=== PATIENT | male | born 1950 | race Two or more races ===

== ENCOUNTER 2017-03-30 14:52 | Observation (INO) | payer MEDICARE, OTHER ==
--- NOTE | 2017-03-30 15:45 | ER Document Report ---
ED Medical Screen (RME) - General Chief Complaint: Chest Pain Stated Complaint: CHEST PAIN Time Seen by Provider: 03/30/17 15:43 Notes: Patient has had chest pain for approximate 1 week. He states is been intermittent. He says he has had a heart attack before with blockage but they are unable to stent the blockage. He states this was done in [place]. TRAVEL OUTSIDE OF THE [place] IN LAST 30 DAYS: No - Related Data Allergies/Adverse Reactions: codeine Allergy (Verified 03/30/17 14:53) Past Medical History - Social History Frequency of alcohol use: None Drug Abuse: None Renal/ Medical History: Denies: Hx Peritoneal Dialysis Physical Exam - Vital signs Vitals: Temp Pulse Resp BP Pulse Ox 98.2 F 63 20 150/68 H 97 03/30/17 15:01 03/30/17 15:01 03/30/17 15:01 03/30/17 15:01 03/30/17 15:01 Course - Vital Signs Vital signs: Temp Pulse Resp BP Pulse Ox 98.2 F 63 20 150/68 H 97 03/30/17 15:01 03/30/17 15:01 03/30/17 15:01 03/30/17 15:01 03/30/17 15:01
[2017-03-30 16:15] LABS: ABSOLUTE BASOPHILS # (AUTO) 0.1 10^3/uL (0.0-0.2); ABSOLUTE EOSINOPHILS # (AUTO) 0.3 10^3/uL (0.0-0.6); ABSOLUTE LYMPHOCYTES (AUTO) 2.3 10^3/uL (0.5-4.7); ABSOLUTE MONOCYTES (AUTO) 0.5 10^3/uL (0.1-1.4); ABSOLUTE NEUT (AUTO) 4.8 10^3/uL (1.7-8.2); BASOPHILS % (AUTO) 1.3 % (0-2); EOSINOPHILS % (AUTO) 3.2 % (0-6); HEMOGLOBIN 13.1 g/dL (13.5-17.0); HGB HCT DIFFERENCE 1.3; LYMPHOCYTES % (AUTO) 29.4 % (13-45); MEAN CORPUSCULAR HEMOGLOBIN 30.7 pg (27.0-33.4); MEAN CORPUSCULAR HGB CONC 34.5 g/dL (32.0-36.0); MEAN CORPUSCULAR VOLUME 89 fl (80-97); MONOCYTES % (AUTO) 6.2 % (3-13); RED BLOOD COUNT 4.28 10^6/uL (4.35-5.55); RED CELL DISTRIBUTION WIDTH 13.7 % (11.5-14.0); SEGMENTED NEUTROPHILS % (AUTO) 59.9 % (42-78); WHITE BLOOD COUNT 7.9 10^3/uL (4.0-10.5)
--- NOTE | 2017-03-30 16:31 | RADIOLOGY REPORT (SQ) ---
EXAM DESCRIPTION: CHEST PA/LAT COMPLETED DATE/TIME: 03/30/2017 4:20 pm REASON FOR STUDY: cp COMPARISON: None. EXAM PARAMETERS: NUMBER OF VIEWS: two views TECHNIQUE: Digital Frontal and Lateral radiographic views of the chest acquired. RADIATION DOSE: NA LIMITATIONS: none FINDINGS: LUNGS AND PLEURA: No opacities, masses or pneumothorax. No pleural effusion. I cannot exc lude a component of obstructive lung disease. MEDIASTINUM AND HILAR STRUCTURES: No masses or contour abnormalities. HEART AND VASCULAR STRUCTURES: Heart normal size. No evidence for failure. BONES: No acute findings. There is some bony deformity of the distal right clavicle with some elevat ion of the distal right clavicle presumably related to previous trauma. HARDWARE: None in the chest. OTHER: No other significant finding. IMPRESSION: NO SIGNIFICANT RADIOGRAPHIC FINDING IN THE CHEST. TECHNICAL DOCUMENTATION: JOB ID: [id number] [employer]- All Rights Reserved
[2017-03-30 16:34] LABS: ALANINE AMINOTRANSFERASE 35 U/L (21-72); ALBUMIN 4.1 g/dL (3.5-5.0); ALKALINE PHOSPHATASE 93 U/L (38-126); ANION GAP 12 (5-19); ASPARTATE AMINO TRANSFERASE 19 U/L (17-59); BILIRUBIN,DIRECT 0.3 mg/dL (0.0-0.4); BILIRUBIN,TOTAL 0.5 mg/dL (0.2-1.3); BLOOD UREA NITROGEN 13 mg/dL (7-20); CALCIUM 9.2 mg/dL (8.4-10.2); CARBON DIOXIDE 27 mmol/L (22-30); CHLORIDE 108 mmol/L (98-107); CREATININE RESULT 0.67 mg/dL (0.52-1.25); GLUCOSE 107 mg/dL (75-110); POTASSIUM 3.8 mmol/L (3.6-5.0); SODIUM 146.8 mmol/L (137-145); TOTAL PROTEIN 6.9 g/dL (6.3-8.2)
[2017-03-30] MEDS ORDERED: ACETAMINOPHEN 325 MG TABLET PO PRN (17:24)
[2017-03-30] MEDS ORDERED: ZOLPIDEM TARTRATE 5 MG TABLET PO PRN (17:24)
[2017-03-30] MEDS ORDERED: ONDANSETRON HCL INJ/PF 4 MG/2 ML SDV IV PRN (17:24)
--- NOTE | 2017-03-30 17:24 | ER Document Report ---
ED Cardiac - General Chief Complaint: Chest Pain Stated Complaint: CHEST PAIN Time Seen by Provider: 03/30/17 15:43 Mode of Arrival: Ambulatory Information source: Patient Notes: Patient is a 66-year-old male with past medical history including high blood pressure, high cholesterol, diabetes, "heart attack" in the past without stents , as well as a abdominal surgery and a previous AAA 3 cm in diameter on last evaluation who presents today stating a week of some progressive substernal nonradiating chest "discomfort". He denies any and all abdominal pain or tenderness. He denies any aggravating or relieving factors. He denies it being exertional pain. Patient has a left BKA. He denies any right calf pain or swelling. Patient moved to 1 month ago from [place]. He denies any runny nose, congestion, or coughing. Patient does smoke. On review of systems the patient is also complaining of a developing ulcer over the last year to his left AKA distal attachment site TRAVEL OUTSIDE OF THE [place] IN LAST 30 DAYS: No - HPI Patient complains to provider of: Chest pain Was the onset of pain: Gradual Is the pain a: New problem Chest pain location: Substernal Quality of pain: Other - See above Chest pain radiation location: None Severity now: None Severity at worst: Mild Pain level currently: Denies Chest pain precipitating factors: See above Cardiac risk factors: Diabetes, Hypertension, Smoker, Dyslipidemia, Hx [place]. denies: + Family history, Hx CHF Positive cardiac history: Yes Associated symptoms: Other Exacerbated by: Denies Relieved by: Nothing Similar symptoms previously: Yes Recently seen / treated by doctor: No - Related Data Allergies/Adverse Reactions: codeine Allergy (Verified 03/30/17 14:53) Home Medications: Current Home Medications Alprostadil [[place]] 500 mcg UR ASDIR PRN 03/30/17 [History] Aspirin [Aspirin EC] 81 mg PO DAILY 03/30/17 [History] Atorvastatin Calcium [Lipitor] 0.5 mg PO DAILY 03/30/17 [History] Baclofen [Baclofen 20 mg Tablet] 0.5 tab PO TID 03/30/17 [History] Cholecalciferol (Vitamin D3) [Vitamin D3 2000 unit Tablet] 2,000 unit PO DAILY 03/30/17 [History] Hydrocodone/Acetaminophen [Hydrocodon-Acetaminoph 7.5-325] 1 each PO Q6H PRN 08/11 [History] Insulin Glargine,Hum.rec.anlog [Lantus] 30 units SQ DAILY 03/30/17 [History] Metformin HCl 1,000 mg PO BID 03/30/17 [History] Mupirocin [Bactroban 2% Ointment 22 gm] 1 applic TP DAILY 03/30/17 [History] Naproxen 500 mg PO BID 03/30/17 [History] Omeprazole 20 mg PO DAILY 03/30/17 [History] Pregabalin [Lyrica] 200 mg PO TID 03/30/17 [History] Sertraline HCl [Zoloft] 100 mg PO DAILY 03/30/17 [History] Sildenafil Citrate [Viagra] 100 mg PO ASDIR PRN 03/30/17 [History] Trazodone HCl [Desyrel] 100 mg PO DAILY 03/30/17 [History] Past Medical History - General Information source: Patient - Social History Smoking Status: Current Every Day Smoker Cigarette use (# per day): No Chew tobacco use (# tins/day): No Smoking Education Provided: No Frequency of alcohol use: None Drug Abuse: None Family History: Reviewed & Not Pertinent Patient has suicidal ideation: No Patient has homicidal ideation: No Renal/ Medical History: Denies: Hx Peritoneal Dialysis Review of Systems - Review of Systems Constitutional: denies: Fever EENT: denies: Eye discharge, Nose discharge Cardiovascular: denies: Palpitations, Syncope, Dizziness Respiratory: denies: Short of breath Gastrointestinal: denies: Abdomen distended, Abdominal pain, Vomiting Genitourinary: denies: Dysuria Musculoskeletal: denies: Leg swelling Skin: Other - no hives. denies: Rash Neurological/Psychological: Other - no slurred speech -: Yes All other systems reviewed and negative Physical Exam - Vital signs Vitals: Temp Pulse Resp BP Pulse Ox 98.2 F 63 20 150/68 H 97 03/30/17 15:01 03/30/17 15:01 03/30/17 15:01 03/30/17 15:01 03/30/17 15:01 Notes: Reviewed vital signs and nursing note as charted by RN. CONSTITUTIONAL: Alert and oriented and responds appropriately to questions. Well -appearing; well-nourished HEAD: Normocephalic; atraumatic EYES: PERRL CARD: Regular rate and rhythm; no murmurs RESP: Normal chest excursion without splinting or tachypnea; breath sounds clear and equal bilaterally ABD/GI: Normal bowel sounds; old abdominal midline scars consistent with history ; non-distended; soft, non-tender, no rebound, no guarding; abdominal bruit heard left of the umbilicus midline consistent with history; no palpable organomegaly or masses present BACK: The back appears normal and is non-tender to palpation, there is no CVA tenderness EXT: Normal ROM in all joints; non-tender to palpation; no cyanosis, no effusions, no edema SKIN: Patient has a nonfluctuant non-purulent lesion 3cm by 1 cm to the distal left AKA site NEURO: Moves all extremities equally; Motor and sensory function intact PSYCH: The patient's mood and manner are appropriate. Grooming and personal hygiene are appropriate. Course - Re-evaluation Re-evalutation: Given the history and physical examination we will order basic labs, cardiac labs, EKG, and x-ray of the chest. Patient currently denies any pain to his chest. I have ordered nitro paste. Given the lack of any shortness of breath, vital signs as recorded, no radiation to his back, I do believe aortic dissection and pulmonary embolism to be unlikely. Patient denies absolutely any abdominal pain. Patient has no abdominal tenderness. I do not believe AAA rupture was likely. EKG shows a heart rate of 58, normal sinus rhythm, normal axis, no obvious ST elevation or depression. Flattening T waves in lead aVL and V6 03/30/17 17:27 Given the above history and physical, negative troponin 1, x-ray of the chest showing no acute abnormalities, elevated heart score, patient will be admitted for further evaluation and management - Vital Signs Vital signs: Temp Pulse Resp BP Pulse Ox 98.2 F 63 20 150/68 H 97 03/30/17 15:01 03/30/17 15:01 03/30/17 15:01 03/30/17 15:01 03/30/17 15:01 - Laboratory Result Diagrams: 03/30/17 15:50 03/30/17 15:50 Laboratory results interpreted by me: 03/30/17 03/30/17 15:50 15:50 RBC 4.28 L Hgb 13.1 L Sodium 146.8 H Chloride 108 H Discharge - Discharge Clinical Impression: Chest pain Qualifiers: Chest pain type: unspecified Qualified Code(s): R07.9 - Chest pain, unspecified Leg ulcer, left Qualifiers: Non-pressure ulcer stage: unspecified non-pressure ulcer stage Qualified Code(s ): L97.929 - Non-pressure chronic ulcer of unspecified part of left lower leg with unspecified severity Disposition: ADMITTED OBSERVATION Admitting Provider: Hospitalist Unit Admitted: Telemetry
[2017-03-30] MEDS ORDERED: NITROGLYCERIN 2% OINTMENT 1 GM PACKET TP ONE (17:28)
[2017-03-30] MEDS ORDERED: ASPIRIN 325 MG TABLET PO ONE (17:28)
[2017-03-30] MEDS ORDERED: DEXTROSE 40% GEL 15 GM TUBE PO PRN ×2 (17:31)
[2017-03-30] MEDS ORDERED: INSULIN LISPRO 100 UNIT/ML 3 ML VIAL SUBCUT PRN (17:31)
[2017-03-30] MEDS ORDERED: GLUCAGON,HUMAN RECOMB 1 MG INJ IM PRN (17:31)
[2017-03-30] MEDS ORDERED: DEXTROSE 50%-WATER 25 GM/50 ML DISP.SYRIN IV PRN ×2 (17:31)
[2017-03-30] MEDS ORDERED: NITROGLYCERIN 0.4 MG/TAB 25 TAB/BOTTLE SL PRN (17:32)
--- NOTE | 2017-03-30 18:28 | PDOC H&P ---
History of Present Illness Admission Date/PCP: 03/30/2017 Patient complains of: Chest pains for a week History of Present Illness: JONATHAN SHAW is a 66 year old male who presented to emergency room accompanied by his via private vehicle and complains of midsternal chest pain for a whole week. Patient states that the chest pain is 24/7. He denies nausea, shortness of breath, radiation of pain or weakness. He suffers from chronic pain and had not been able to get the usual dose of hydrocodone for a week and a half. He recently moved from [place] to this area and his primary care provider had been refilling the medication. A week ago he was told that there were not going to be any more refills. Patient admits history of smoking half a pack daily for the past 55 years. He also has a history of abdominal aneurysm, diabetes, high blood pressure and heart attack. Our service was contacted and will admit for further evaluation. Past Medical History Cardiac Medical History: Reports: Coronary Artery Disease, Myocardial Infarction , Hyperlipidema, Hypertension, Peripheral Vascular Disease Pulmonary Medical History: Denies: Chronic Obstructive Pulmonary Disease (COPD) EENT Medical History: Reports: None Neurological Medical History: Reports: None Endocrine Medical History: Reports: Diabetes Mellitus Type 2 GI Medical History: Reports: Gastroesophageal Reflux Disease Musculoskeltal Medical History: Reports: Arthritis, Other - Diabetic neuropathy Psychiatric Medical History: Reports: Tobacco Dependency Traumatic Medical History: Reports: None Hematology: Reports: None Infectious Medical History: Reports: Hepatitis C Past Surgical History Past Surgical History: Reports: Other - Left BKA, Abdominal surgery for abdominal aneurysm Social History Information Source: Patient Smoking Status: Current Every Day Smoker Cigars Per Day: 50 Number of Years Smokin Frequency of Alcohol Use: None Hx Recreational Drug Use: No Hx Prescription Drug Abuse: Yes - Advance Directive Resuscitation Status: Full Code Family History Family History: DM, Hypertension Parental Family History Reviewed: Yes Children Family History Reviewed: Yes Sibling(s) Family History Reviewed.: Yes Medication/Allergy Home Medications: Alprostadil [[place]] 500 mcg UR ASDIR PRN 03/30/17 Aspirin [Aspirin EC] 81 mg PO DAILY 03/30/17 Atorvastatin Calcium [Lipitor] 0.5 mg PO DAILY 03/30/17 Baclofen [Baclofen 20 mg Tablet] 0.5 tab PO TID 03/30/17 Cholecalciferol (Vitamin D3) [Vitamin D3 2000 unit Tablet] 2,000 unit PO DAILY 03/30/17 Hydrocodone/Acetaminophen [Hydrocodon-Acetaminoph 7.5-325] 1 each PO Q6H PRN 08/11 Insulin Glargine,Hum.rec.anlog [Lantus] 30 units SQ DAILY 03/30/17 Metformin HCl 1,000 mg PO BID 03/30/17 Mupirocin [Bactroban 2% Ointment 22 gm] 1 applic TP DAILY 03/30/17 Naproxen 500 mg PO BID 03/30/17 Omeprazole 20 mg PO DAILY 03/30/17 Pregabalin [Lyrica] 200 mg PO TID 03/30/17 Sertraline HCl [Zoloft] 100 mg PO DAILY 03/30/17 Sildenafil Citrate [Viagra] 100 mg PO ASDIR PRN 03/30/17 Trazodone HCl [Desyrel] 100 mg PO DAILY 03/30/17 Allergies/Adverse Reactions: codeine Allergy (Verified 03/30/17 14:53) Review of Systems Constitutional: ABSENT: chills, fever(s), headache(s) Eyes: PRESENT: as per HPI Ears: PRESENT: as per HPI Nose, Mouth, and Throat: ABSENT: sore throat Cardiovascular: PRESENT: chest pain, dyspnea on exertion. ABSENT: edema Respiratory: PRESENT: dyspnea Gastrointestinal: ABSENT: abdominal pain, dysphagia, heartburn Neurological: PRESENT: focal weakness Physical Exam Vital Signs: Temp Pulse Resp BP Pulse Ox 98.2 F 63 20 150/68 H 97 03/30/17 15:01 03/30/17 15:01 03/30/17 15:01 03/30/17 15:01 03/30/17 15:01 Intake & Output 03/29/17 03/30/17 03/31/17 06:59 06:59 06:59 Weight 94 kg General appearance: PRESENT: no acute distress, cooperative, obese Head exam: PRESENT: atraumatic, normocephalic Eye exam: PRESENT: conjunctiva pink, EOMI, PERRLA Ear exam: PRESENT: normal external ear exam, TM's normal bilaterally Mouth exam: PRESENT: moist, neck supple Neck exam: PRESENT: full ROM. ABSENT: JVD, tenderness Respiratory exam: PRESENT: clear to auscultation maria elena Cardiovascular exam: PRESENT: RRR. ABSENT: diastolic murmur, systolic murmur Vascular exam: PRESENT: normal capillary refill GI/Abdominal exam: PRESENT: normal bowel sounds, soft, other - midline depressible incisional hernia. ABSENT: tenderness Extremities exam: ABSENT: joint swelling, pedal edema Neurological exam: PRESENT: alert, oriented to person, oriented to place, oriented to time Skin exam: PRESENT: normal color - ulcer to lateral aspect of left BKA, other Results Laboratory Results: 03/30/17 15:50 03/30/17 15:50 03/30/17 03/30/17 15:50 15:50 WBC 7.9 RBC 4.28 L Hgb 13.1 L Hct 38.0 MCV 89 MCH 30.7 MCHC 34.5 RDW 13.7 Plt Count 208 Seg Neutrophils % 59.9 Lymphocytes % 29.4 Monocytes % 6.2 Eosinophils % 3.2 Basophils % 1.3 Absolute Neutrophils 4.8 Absolute Lymphocytes 2.3 Absolute Monocytes 0.5 Absolute Eosinophils 0.3 Absolute Basophils 0.1 Sodium 146.8 H Potassium 3.8 Chloride 108 H Carbon Dioxide 27 Anion Gap 12 BUN 13 Creatinine 0.67 Est GFR ( Amer) > 60 Est GFR (Non-Af Amer) > 60 Glucose 107 Calcium 9.2 Total Bilirubin 0.5 AST 19 ALT 35 Alkaline Phosphatase 93 Total Protein 6.9 Albumin 4.1 03/30/17 15:50 Troponin I < 0.012 Impressions: Chest X-Ray 03/30/17 15:44 IMPRESSION: NO SIGNIFICANT RADIOGRAPHIC FINDING IN THE CHEST. Assessment & Plan - Diagnosis (1) Abdominal aneurysm Is this a current diagnosis for this admission?: Yes Plan: Order abdominal sonogram (2) Chest pain Qualifiers: Chest pain type: unspecified Qualified Code(s): R07.9 - Chest pain, unspecified Is this a current diagnosis for this admission?: Yes Plan: According to the story appears be non cardiac but lack of hydrocodone. However, will trend troponin due to risk factors. 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 Order bedside glucose Ac and HS. (5) Tobacco abuse Is this a current diagnosis for this admission?: Yes Plan: Encouraged to quit smoking and states had been trying to cut down - Time Time Spent: 30 to 50 Minutes Smoking Cessation Education: 3 to 10 minutes Medications reviewed and adjusted accordingly: Yes Anticipated discharge: Home - Inpatient Certification Based on my medical assessment, after consideration of the patient's comorbidities, presenting symptoms, or acuity I expect that the services needed warrant INPATIENT care.: No I certify that my determination is in accordance with my understanding of Medicare's requirements for reasonable and necessary INPATIENT services [42 CFR 412.3e].: Yes Medical Necessity: Significant Comorbidiites Make Outpatient Treatment Too Risky
[2017-03-30] MEDS ORDERED: ENOXAPARIN SODIUM INJ 40 MG/0.4 ML DISP.SYRIN SUBCUT ONE (18:30)
[2017-03-30] MEDS: OXYCODONE-ACETAMINOPHEN 5-325 MG TABLET PO PRN (18:35)
--- NOTE | 2017-03-30 20:38 | EKG REPORT ---
SEVERITY:- NORMAL ECG - SINUS RHYTHM : Confirmed by: Lizandro Hoffman 30-Mar-2017 20:37:36
[2017-03-30] MEDS: PREGABALIN 100 MG CAPSULE PO SCH (21:58)
[2017-03-30] MEDS: BACLOFEN 20 MG TABLET PO SCH (21:59)
[2017-03-30] MEDS: TRAZODONE HCL 50 MG TABLET PO SCH (22:00)
[2017-03-30] MEDS ORDERED: INSULIN GLARGINE,HUM.REC.ANLOG 1,000 UNIT/10 ML UNIT SUBCUT SCH (22:00)
[2017-03-30] MEDS ORDERED: (PENDING PHARMACY ID) (Trazodone Hcl [Desyrel] 100 MG) PO SCH (22:00)
[2017-03-30] MEDS: INSULIN GLARGINE,HUM.REC.ANLOG 300 UNIT/3 ML INSULN.PEN SUBCUT SCH (22:00)
--- NOTE | 2017-03-31 03:08 | RADIOLOGY REPORT (SQ) ---
EXAM DESCRIPTION: U/S ABDOMEN COMPLETE W/O DOP CLINICAL HISTORY: 66 years, Male, eval for abdominal aneurysm COMPARISON: None. NUMBER OF VIEWS: Not applicable. TECHNIQUE: Transabdominal. LIMITATIONS: As below. FINDINGS: Mid and distal abdominal aorta are obscured. Proximal abdominal aorta diameter measures 2.9 cm. Moderate hepatic steatosis. 0.4 cm diameter common duct. Cholelithiasis. Negative sonographic Nix's test. Indeterminate 2.6 cm hypoechoic area of the left mid kidney. Right kidney and spleen appear unremarkable. Hepatopedal portal venous flow. Partially obscured aorta and liver. IMPRESSION: 1. Aorta is partially obscured, as queried. Abdominal aortic aneurysm cannot be excluded. 2. Indeterminate 2.6 cm hypoechoic component left kidney. 3. Cholelithiasis. 4. Limited visualization of the liver. Recommendation: Dynamic contrast CT (renal protocol) of the abdomen and pelvis. 2011 [employer]- All Rights Reserved
[2017-03-31 04:02] LABS: HEMATOCRIT 36.5 % (37.9-51.0); HEMOGLOBIN 12.6 g/dL (13.5-17.0); HGB HCT DIFFERENCE 1.3; MEAN CORPUSCULAR HEMOGLOBIN 30.7 pg (27.0-33.4); MEAN CORPUSCULAR HGB CONC 34.6 g/dL (32.0-36.0); MEAN CORPUSCULAR VOLUME 89 fl (80-97); RED CELL DISTRIBUTION WIDTH 13.6 % (11.5-14.0); WHITE BLOOD COUNT 7.7 10^3/uL (4.0-10.5)
[2017-03-31 04:23] LABS: ANION GAP 14 (5-19); BLOOD UREA NITROGEN 15 mg/dL (7-20); CALCIUM 9.4 mg/dL (8.4-10.2); CARBON DIOXIDE 26 mmol/L (22-30); CHLORIDE 107 mmol/L (98-107); GLUCOSE 116 mg/dL (75-110); MAGNESIUM 1.4 mg/dL (1.6-2.3); SODIUM 146.6 mmol/L (137-145)
[2017-03-31] MEDS: LANSOPRAZOLE 15 MG TAB.RAP.DR PO SCH (05:51)
[2017-03-31] MEDS: PREGABALIN 100 MG CAPSULE PO SCH ×3 (06:54→21:01)
[2017-03-31] MEDS: BACLOFEN 20 MG TABLET PO SCH ×3 (06:54→21:01)
[2017-03-31] MEDS ORDERED: ATORVASTATIN CALCIUM 80 MG TABLET PO SCH (10:00)
[2017-03-31] MEDS ORDERED: (PENDING PHARMACY ID) (Pregabalin [Lyrica] 200 MG) PO SCH (10:00)
[2017-03-31] MEDS ORDERED: REGADENOSON INJ 0.4 MG/5 ML DISP.SYRIN IV ONE (13:20)
[2017-03-31] MEDS: ENOXAPARIN SODIUM INJ 40 MG/0.4 ML DISP.SYRIN SUBCUT SCH (13:22)
[2017-03-31] MEDS: SERTRALINE HCL 50 MG TABLET PO SCH (13:23)
[2017-03-31] MEDS: ASPIRIN 81 MG TABLET, ENT COATED PO SCH (13:24)
[2017-03-31] MEDS: OXYCODONE-ACETAMINOPHEN 5-325 MG TABLET PO PRN (13:25)
[2017-03-31] MEDS: MUPIROCIN 2% OINTMENT 22 GM TP SCH (13:26)
--- NOTE | 2017-03-31 16:05 | PDOC PROGRESS REPORT ---
Subjective Progress Note for:: 03/31/17 Subjective:: Patient relates that chest pain is better Reason For Visit: CHEST PAIN Physical Exam Vital Signs: Temp Pulse Resp BP Pulse Ox 98.4 F 54 L 20 149/63 H 95 03/31/17 04:28 03/31/17 04:28 03/31/17 04:28 03/31/17 04:28 03/31/17 04:28 Intake & Output 03/29/17 03/30/17 03/31/17 06:59 06:59 06:59 Weight 90.9 kg General appearance: PRESENT: no acute distress, cooperative, obese Head exam: PRESENT: atraumatic, normocephalic Eye exam: PRESENT: conjunctiva pink, EOMI Ear exam: PRESENT: normal external ear exam Neck exam: PRESENT: full ROM. ABSENT: JVD, tenderness Respiratory exam: PRESENT: clear to auscultation maria elena Cardiovascular exam: PRESENT: RRR. ABSENT: diastolic murmur, systolic murmur Vascular exam: PRESENT: normal capillary refill GI/Abdominal exam: PRESENT: soft, other - depressible ventral hernia. ABSENT: tenderness Extremities exam: PRESENT: joint swelling. ABSENT: pedal edema Musculoskeletal exam: PRESENT: full ROM Neurological exam: PRESENT: alert, awake, oriented to person, oriented to place , oriented to time Psychiatric exam: PRESENT: appropriate affect, normal mood Skin exam: PRESENT: normal color Results Laboratory Results: 03/31/17 03:51 03/31/17 03:51 03/31/17 03/31/17 03:51 03:51 WBC 7.7 RBC 4.10 L Hgb 12.6 L Hct 36.5 L MCV 89 MCH 30.7 MCHC 34.6 RDW 13.6 Plt Count 173 Sodium 146.6 H Potassium 4.0 Chloride 107 Carbon Dioxide 26 Anion Gap 14 BUN 15 Creatinine 0.70 Est GFR ( Amer) > 60 Est GFR (Non-Af Amer) > 60 Glucose 116 H Calcium 9.4 Magnesium 1.4 L 03/30/17 03/31/17 21:55 03:51 Troponin I 0.012 < 0.012 Impressions: Abdomen Ultrasound 03/30/17 00:00 IMPRESSION: 1. Aorta is partially obscured, as queried. Abdominal aortic aneurysm cannot be excluded. 2. Indeterminate 2.6 cm hypoechoic component left kidney. 3. Cholelithiasis. 4. Limited visualization of the liver. Recommendation: Dynamic contrast CT (renal protocol) of the abdomen and pelvis. 2011 [employer] All Rights Reserved Chest X-Ray 03/30/17 15:44 IMPRESSION: NO SIGNIFICANT RADIOGRAPHIC FINDING IN THE CHEST. Assessment & Plan - Diagnosis (1) Abdominal aneurysm Is this a current diagnosis for this admission?: Yes Plan: Noted results of abdominal sonogram which were inconclusive. I think this could be follow-up as outpatient (2) Chest pain Qualifiers: Chest pain type: unspecified Qualified Code(s): R07.9 - Chest pain, unspecified Is this a current diagnosis for this admission?: Yes Plan: According to the story appears be non cardiac but lack of hydrocodone. 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 (5) Tobacco abuse Is this a current diagnosis for this admission?: Yes Plan: Encouraged to quit smoking and states had been trying to cut down (6) HTN (hypertension) Is this a current diagnosis for this admission?: Yes Plan: Continue outpatient regimen - Time Time Spent with patient: 15-24 minutes Medications reviewed and adjusted accordingly: Yes Anticipated discharge: Home Within: within 24 hours - Inpatient Certification Based on my medical assessment, after consideration of the patient's comorbidities, presenting symptoms, or acuity I expect that the services needed warrant INPATIENT care.: No I certify that my determination is in accordance with my understanding of Medicare's requirements for reasonable and necessary INPATIENT services [42 CFR 412.3e].: Yes Medical Necessity: Need Close Monitoring Due to Risk of Patient Decompensation
[2017-03-31] MEDS ORDERED: NICOTINE 21 MG/24 HR PATCH.TD24 TD SCH (19:00)
[2017-03-31] MEDS: INSULIN GLARGINE,HUM.REC.ANLOG 300 UNIT/3 ML INSULN.PEN SUBCUT SCH (21:00)
[2017-03-31] MEDS: TRAZODONE HCL 50 MG TABLET PO SCH (21:02)
[2017-03-31] MEDS: HYDROCODONE/ACETAMINOPHEN 5-325 MG TABLET PO PRN (21:07)
[2017-04-01] MEDS: HYDROCODONE/ACETAMINOPHEN 5-325 MG TABLET PO PRN ×2 (05:24→10:42)
[2017-04-01] MEDS: PREGABALIN 100 MG CAPSULE PO SCH ×2 (05:24→15:47)
[2017-04-01] MEDS: BACLOFEN 20 MG TABLET PO SCH ×2 (05:25→15:47)
[2017-04-01] MEDS: LANSOPRAZOLE 15 MG TAB.RAP.DR PO SCH (05:25)
[2017-04-01] MEDS: ENOXAPARIN SODIUM INJ 40 MG/0.4 ML DISP.SYRIN SUBCUT SCH (10:36)
[2017-04-01] MEDS: SERTRALINE HCL 50 MG TABLET PO SCH (10:36)
[2017-04-01] MEDS: ASPIRIN 81 MG TABLET, ENT COATED PO SCH (10:36)
[2017-04-01] MEDS: MUPIROCIN 2% OINTMENT 22 GM TP SCH (10:38)
[2017-04-01 13:25] VITALS: BP 134/66
[2017-04-01] MEDS ORDERED: ATORVASTATIN CALCIUM 40 MG TABLET PO SCH (22:00)
--- NOTE | 2017-04-02 06:06 | PDOC DISCHARGE SUMMARY ---
General - Admit/Disc Date/PCP Admission Date/Primary Care Provider: 03/30/17 18:48 Discharge Date: 04/01/17 - Discharge Diagnosis (1) Chest pain Is this a current diagnosis for this admission?: Yes (2) Opioid dependence in controlled environment Is this a current diagnosis for this admission?: Yes (3) Chronic pain Is this a current diagnosis for this admission?: Yes (4) Leg ulcer, left Is this a current diagnosis for this admission?: Yes (5) Diabetes mellitus Is this a current diagnosis for this admission?: Yes (6) Tobacco abuse Is this a current diagnosis for this admission?: Yes (7) HTN (hypertension) Is this a current diagnosis for this admission?: Yes - Additional Information Resuscitation Status: Full Code Discharge Diet: Diabetic Discharge Activity: Activity As Tolerated Home Medications: Alprostadil [[place]] 500 mcg UR ASDIR PRN 03/31/17 Aspirin [Aspirin EC] 81 mg PO DAILY 03/31/17 Atorvastatin Calcium [Lipitor 80 mg Tablet] 40 mg PO QHS 03/31/17 Baclofen [Baclofen 20 mg Tablet] 10 mg PO Q8 03/31/17 Cholecalciferol (Vitamin D3) [Vitamin D3 2000 unit Tablet] 2,000 unit PO DAILY 03/31/17 Insulin Glargine,Hum.rec.anlog [Lantus Solostar] 30 units SQ QHS 03/31/17 Metformin HCl [Glucophage] 1,000 mg PO BID 03/31/17 Omeprazole 20 mg PO Q6AM 03/31/17 Pregabalin [Lyrica] 200 mg PO Q8 03/31/17 Sertraline HCl [Zoloft] 100 mg PO DAILY 03/31/17 Sildenafil Citrate [Viagra] 100 mg PO ASDIR PRN 03/31/17 Trazodone HCl [Desyrel] 100 mg PO QHS 03/31/17 Hydrocodone/Acetaminophen [[place] 7.5-325 mg Tablet] 1 tab PO Q6HP PRN #10 tablet 04/01/17 History of Present Illness History of Present Illness: JONATHAN SHAW is a 66 year old male who presented to emergency room accompanied by his via private vehicle and complained of midsternal chest pain for a whole week. Patient states that the chest pain is 24/7. He denies nausea, shortness of breath, radiation of pain or weakness. He suffers from chronic pain and had not been able to get the usual dose of hydrocodone for a week and a half. He recently moved from [place] to this area and his primary care provider had been refilling the medication. A week ago he was told that there were not going to be any more refills. Patient admits history of smoking half a pack daily for the past 55 years. He also has a history of abdominal aneurysm, diabetes, high blood pressure and heart attack. Our service was contacted and due to co morbidities admitted for further evaluation. Hospital Course Hospital Course: Patient was admitted to telemetry unit. There were no cardiac dysrhythmias. Troponin remained negative. Patient underwent a nuclear stress test on 03/[address] Mahajan recommended for him to get repeat images because of technical difficulties. It is noteworthy to mention that chest pain had improved once patient was placed on hydrocodone. Unfortunately the results of the nuclear stress test were still pending at the time of discharge. Since stable and he wanted to go to [facility] system in order to get all his affairs situated , he was advised to follow-up with Dr. Mahajan as he would benefit from being follow-up by a charge loader. Patient also had been advised that surgery follow-up of abdominal aneurysm will have to be pursued as outpatient since abdominal sonogram at this facility was inconclusive, Since patient had achieved maximum benefit of hospitalization stay prompted to discharge under stable condition Physical Exam Vital Signs: Temp Pulse Resp BP Pulse Ox 97.4 F 52 L 16 134/66 H 97 04/01/17 15:29 04/01/17 15:29 04/01/17 15:29 04/01/17 15:29 04/01/17 15:29 Intake & Output 03/31/17 04/01/17 04/02/17 06:59 06:59 06:59 Intake Total 222 493 Output Total 670 600 Balance -448 -107 Weight 90.9 kg 90.9 kg General appearance: PRESENT: no acute distress, cooperative, obese Head exam: PRESENT: atraumatic, normocephalic Eye exam: PRESENT: EOMI, PERRLA Ear exam: PRESENT: normal external ear exam Mouth exam: PRESENT: moist, neck supple Teeth exam: PRESENT: poor dentation Neck exam: PRESENT: full ROM. ABSENT: JVD, meningismus, tenderness Respiratory exam: PRESENT: clear to auscultation maria elena Cardiovascular exam: PRESENT: RRR. ABSENT: diastolic murmur, systolic murmur Pulses: PRESENT: normal carotid pulses Vascular exam: PRESENT: normal capillary refill GI/Abdominal exam: PRESENT: normal bowel sounds, soft, other - Depressible ventral hernia. No pulsating masses. ABSENT: tenderness Extremities exam: PRESENT: full ROM. ABSENT: joint swelling, pedal edema Neurological exam: PRESENT: alert, awake, oriented to person, oriented to place , oriented to time Psychiatric exam: PRESENT: appropriate affect, normal mood Skin exam: PRESENT: normal color, other - Right BKA ulcer. No exudates noted Results Laboratory Results: 03/31/17 03:51 03/31/17 03:51 03/30/17 03/31/17 21:55 03:51 Troponin I 0.012 < 0.012 Impressions: Abdomen Ultrasound 03/30/17 00:00 IMPRESSION: 1. Aorta is partially obscured, as queried. Abdominal aortic aneurysm cannot be excluded. 2. Indeterminate 2.6 cm hypoechoic component left kidney. 3. Cholelithiasis. 4. Limited visualization of the liver. Recommendation: Dynamic contrast CT (renal protocol) of the abdomen and pelvis. 2011 [employer]- All Rights Reserved Chest X-Ray 03/30/17 15:44 IMPRESSION: NO SIGNIFICANT RADIOGRAPHIC FINDING IN THE CHEST. Plan Discharge Plan: Discharge home. Patient had been advised as to follow-up with Dr. Mahajan since at the time of discharge final results of nuclear stress test or still pending. Time Spent: Less than 30 Minutes
--- NOTE | 2017-04-04 16:16 | DRAGON STRESS TEST REPORT ---
2 Day Intravenous Lexiscan Cardiolite stress test using single photon emmision computerized tomography. Date of Resting procedure: 04/01/2017. Date of Stress procedure: 03/31/2017. Ordering Provider:Dr.Mila French. Note that the initial resting images were done on 03/31/2017, but there was no myocardial uptake of the technetium 90 9M sestamibi. Hence the resting images were redone on March 2017. Patient Status: In Patient. Indication: Chest pain. Coronary risk factors: Age, diabetes, and dyslipidemia. Resting EKG: Sinus Bradycardia. Within Normal Limits. Stress EKG: No changes of ischemia. The patient had no chest pain or discomfort, and there were no arrhythmias seen. Reason for termination: Protocol. Conclusions: Normal EKG and hemodynamic response to IV Lexiscan. Nuclear data: On 03/31/2017 the patient was given intravenous Lexiscan at a dose of 0.4 mg in 5 mL intravenously, followed by flush with normal saline. Subsequently the stress dose of millicuries of technetium 99m sestamibi was injected intravenously. As per protocol stress gated images were obtained. At rest, on 04/01/2017 the patient was given 14.36 millicuries of technetium 99m sestamibi injected intravenously. As per protocol rest non gated SPECT images were obtained. Nuclear interpretation: Review of images showed that this is a very poor quality study and difficult to interpret. There is liver and bowel contamination artifact of the inferior wall. But in spite of this all segments of the myocardium had probably normal perfusion at rest, and normal perfusion post stress with IV Lexiscan. All segments of the myocardium had normal motion, contraction, and thickening by gated study. T. I D. ratio was read as abnormal at 1.31. Visually this is not reliable computer read rest, and stress left ventricular ejection fraction were 53 %, and 37 %, respectively. Visually both the stress and rest ejection fractions were normal, and greater than 55%. Conclusion: 1. There is probably no scintigraphic evidence of Lexiscan induced myocardial ischemia. 2. There is no scintigraphic evidence of myocardial infarction/scar. Recommendations: 1. Aggressive risk factor modification, and treating the underlying co- morbidities. 2. If the patient continues to have chest pain then would recommend cardiac catheterization. 3. Check echo for LV ejection fraction correlation. [facility]
== END 2017-04-01 18:00 | disposition home or self-care (01) ==
LOC: ER 14:52 → EH 18:48 → 4N 20:45
PROVIDERS: ADMIT Family Medicine; ATTEND Family Medicine
PROC: HZ31ZZZ Individual Counseling for Substance Abuse Treatment, Behavioral (ICD-10-PCS; principal; 2017-03-30)
DX: R07.9 Chest pain, unspecified (principal); F11.20 Opioid dependence, uncomplicated; G89.29 Other chronic pain; E11.622 Type 2 diabetes mellitus with other skin ulcer; L97.829 Non-pressure chronic ulcer of other part of left lower leg with unspecified severity; E11.43 Type 2 diabetes mellitus with diabetic autonomic (poly)neuropathy; I10 Essential (primary) hypertension; F17.210 Nicotine dependence, cigarettes, uncomplicated; I25.10 Atherosclerotic heart disease of native coronary artery without angina pectoris; I73.9 Peripheral vascular disease, unspecified; R06.09 Other forms of dyspnea; I25.2 Old myocardial infarction; K43.9 Ventral hernia without obstruction or gangrene; Z89.512 Acquired absence of left leg below knee; Z82.49 Family history of ischemic heart disease and other diseases of the circulatory system; Z79.899 Other long term (current) drug therapy; Z79.4 Long term (current) use of insulin
CPT/HCPCS: 93005; 99285; 36415 ×2; 82962 ×3; 83735; 85025; 85027; 80048; 80053; 84484 ×2; 83036; 93017; 71020; 76700; 78452; 93010; 99406; A9500; J2785; J1815; J1650 ×3; J3490 ×7; Q9969

== ENCOUNTER → 2017-07-13 | Outpatient (CLI) | payer OTHER, MEDICARE ==
--- NOTE | 2017-07-13 18:27 | XCELERA REPORT ---
[address] [address] Lower Extremity Arterial Evaluation Name: JONATHAN SHAW V Age: 66 yrs Gender: Male : 1950 Patient Status: Outpatient Patient Location: Study Date: 07/13/2017 09:45 AM Procedure: A color flow and duplex scan of the lower extremity arteries was performed bilaterally with velocity and waveform analysis. Reason For Study: ULCER Ordering Physician: LOAN SOLANO Performed By: Beth Maldonado Measurements and Calculations Right Left LANGUAGE AND LITERATURE DIVISION CHAIR PSV 81.6 206.5 cm/sec Prox PFA PSV -109.0 -60.9 cm/sec Prox SFA PSV -64.3 cm/sec Mid SFA PSV -111.5 cm/sec Dist SFA PSV -72.3 -27.1 cm/sec Prox Pop A PSV 50.0 23.8 cm/sec Dist AILIN PSV 68.8 cm/sec Dist BOTTOM CAGER PSV 20.6 cm/sec Leon Pedis PSV 22.4 cm/sec Right Side Arterial Evaluation Normal velocity and triphasic waveforms noted from the Common Femoral artery to the Popliteal, then biphasic to the infrageniculate vessels. Well preserved velocities. 20-49% stenosis at the infrageniculate level. Ankle Brachial index is 0.8 . Left Side Arterial Evaluation Normal velocity and triphasic waveforms noted in the Common Femoral artery. Occluded Femoral with monophasic flow in the Popliteal. BKA. occlusion at the Femoral artery. Interpretation Summary : LOAN SOLANO > Loan Solano
== END ==
LOC: SP 09:23
PROVIDERS: ATTEND Surgery
DX: L97.222 Non-pressure chronic ulcer of left calf with fat layer exposed (principal)
CPT/HCPCS: 93922; 93925

== ENCOUNTER 2018-02-23 07:49 | Day surgery (SDC) | payer OTHER, MEDICARE, MEDICAID ==
[~2018-02-23 07:49] MED LIST: BACITRACIN INJ 50,000 UNIT VIAL ONE; BUPIVACAINE HCL 0.5 % INJ/PF 30 ML SDV ONE; CEFAZOLIN 1 GM/D5W RTU 1 GM/50 ML RTUPB IV PRN; LIDOCAINE 0.5% INJ-PF (5 MG/ML) 50 ML SDV ONE; THROMBIN (BOVINE) TOPICAL 5000 UNIT VIAL ONE
[2018-02-23] MEDS ORDERED: CEFAZOLIN 1 GM/D5W RTU 1 GM/50 ML RTUPB IV ONE (08:25)
[2018-02-23 08:27] LABS: HEMOGLOBIN 13.7 g/dL (13.5-17.0); MEAN CORPUSCULAR HEMOGLOBIN 30.2 pg (27.0-33.4); MEAN CORPUSCULAR HGB CONC 34.2 g/dL (32.0-36.0); MEAN CORPUSCULAR VOLUME 88 fl (80-97); PLATELET COUNT 263 10^3/uL (150-450); RED BLOOD COUNT 4.53 10^6/uL (4.35-5.55); RED CELL DISTRIBUTION WIDTH 14.6 % (11.5-14.0); WHITE BLOOD COUNT 6.7 10^3/uL (4.0-10.5)
[2018-02-23 08:40] LABS: INTERNATIONAL RATION (INR) 1.01; PROTHROMBIN TIME 13.8 SEC (11.4-15.4)
[2018-02-23 08:41] LABS: PARTIAL THROMBOPLASTIN TIME 37.4 SEC (23.5-35.8)
[2018-02-23 08:48] LABS: ANION GAP 10 (5-19); BLOOD UREA NITROGEN 13 mg/dL (7-20); CALCIUM 9.5 mg/dL (8.4-10.2); CARBON DIOXIDE 30 mmol/L (22-30); CHLORIDE 105 mmol/L (98-107); GLUCOSE 105 mg/dL (75-110); POTASSIUM 4.4 mmol/L (3.6-5.0); SODIUM 145.3 mmol/L (137-145)
--- NOTE | 2018-02-23 10:36 | EKG REPORT ---
SEVERITY:- ABNORMAL ECG - SINUS BRADYCARDIA LEFT VENTRICULAR HYPERTROPHY : Confirmed by: Mary Mahajan MD 23-Feb-2018 10:36:14
[2018-02-23] MEDS ORDERED: PROPOFOL INJ 200 MG/20 ML VIAL IV ONE (11:02)
[2018-02-23] MEDS ORDERED: FENTANYL CITRATE INJ/PF 100 MCG/2 ML AMPUL ONE (11:02)
[2018-02-23] MEDS ORDERED: MIDAZOLAM 2 MG/2 ML INJ ONE (11:03)
[2018-02-23] MEDS ORDERED: DIPHENHYDRAMINE HCL 50 MG/ML VIAL IV PRN (12:21)
[2018-02-23] MEDS ORDERED: MEPERIDINE HCL/PF INJ 25 MG/1 ML DISP.SYRIN IV PRN (12:21)
[2018-02-23] MEDS ORDERED: FENTANYL CITRATE INJ/PF 100 MCG/2 ML AMPUL IV PRN ×3 (12:21)
[2018-02-23] MEDS ORDERED: PROMETHAZINE HCL INJ 25 MG/1 ML VIAL IV PRN ×2 (12:21)
[2018-02-23] MEDS ORDERED: OXYCODONE-ACETAMINOPHEN 5-325 MG TABLET PO PRN (12:21)
[2018-02-23] MEDS ORDERED: ONDANSETRON HCL INJ/PF 4 MG/2 ML SDV IV PRN (12:21)
--- NOTE | 2018-02-23 12:54 | Discharge Summary ---
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 2. Diabetes mellitus type 2. 3. Peripheral arterial disease. 4. Hypertension. Date of Surgery: 02/23/18 Discharge Date: 02/24/18 Condition: Fair Treatment or Instructions: Discharge home [after recovery per ASU criteria]. Diet , diabetic as tolerated, when fully awake advance as tolerated. Activities within moderation encouraged. Follow up in my office by appointment in wound clinic on Thursday of this week. Call for appointment. Leave wounds [covered], [keep clean and dry, until office visit in 1 week]. Hold of on school/work [until evaluation in office]. Meds per med rec. May shower [in 48 hrs], [try to keep operated area as dry as possible]. Referrals: THIAGO PEOPLES FNP [Primary Care Provider] - Discharge Diet: Other (Comments) - ED. Respiratory Treatments at Home: Deep Breathing/Coughing
--- NOTE | 2018-02-23 12:58 | Operative Report ---
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 2. Diabetes mellitus type 2. 3. Peripheral arterial disease. 4. Hypertension. POSTOPERATIVE DIAGNOSIS: Chronic ulcer of the left leg amputation site. 2. Diabetes mellitus type 2. 3. Peripheral arterial disease. 4. Hypertension. OPERATION: Full-thickness skin graft to left below amputation chronic ulcer. Donor site right mid abdomen. SURGEON: LOAN MELVIN GASOLINE PUMP MECHANIC: None. ANESTHESIA: LMAC TISSUE REMOVED OR ALTERED: Not applicable. COMPLICATIONS: None. ESTIMATED BLOOD LOSS: 10 mL. INTRAOPERATIVE FINDINGS: Of a chronic wound to the left below amputation site and granulation tissue, clean nicely grafted with a full-thickness graft from the right abdomen.4 x 4 cm. PROCEDURE: PROCEDURE: The [left leg and abdomen] were prepared with [Betadine] and draped out with sterile linen. After the"universal time-out", in which it was confirmed that the patient [did receive antibiotic], the procedure commenced. The patient was appropriately anesthetized. Local anesthesia infiltrated in the abdominal donor site and then in [the left leg wound site]. [The leg wound was debrided] of non viable tissue , excess granulation tissue using[a 10 blade scalpel] with removal of loose debris, as well. The wound was irrigated with [sterile saline] . A saline moistened gauze was now placed on the recipient site. After changing gloves the abdomen was now approached. First the skin which had been painted with Betadine, was cleaned with saline solution so that no Betadine remained. An oval incision was sketched in the crease just below the abdominal pannus. This was centered on the midline and [measured 4 x 3 cm], the incision now made through the epidermis and dermis. [Working from the right side] the skin donor was excised with a 15 blade blade scalpel. This was done in the deep dermal layer, the donor was now put aside in a saline moistened gauze. Underlying fatty tissue, at the donor site, was now excised using cautery in order to facilitate closure. The donor site was now closed after obtaining hemostasis. Closure was done in layers, the deeper layers closed with interrupted 3-0 PDS and the skin closed with a continuous subcuticular suture of 4-0 Monocryl, reinforced with Steri-Strips over benzoin . The donor was now defatted using iris scissors. It was thinned out somewhat. Cleaned with saline and then placed on the recipient site. Several incisions were made in the donor using a 15 blade scalpel. The donor was now sutured in place using 4 sutures of 3-0 PDS placed in the 4 quadrants. Each was left long for subsequent tying. Interval interrupted sutures of 3-0 PDS were utilized in order to anchor the graft. Once this was done satisfactorily an Adaptic gauze was placed on the graft followed by a gauze lightly moistened with saline the 4 sutures previously left long were now tied over this so as to secure nice anchoring and pressure on the graft. 4 x 4's and Kerlix were applied and this portion of the procedure concluded.
[2018-02-23 15:19] VITALS: BP 161/78
--- NOTE | 2018-03-29 14:50 | HISTORY AND PHYSICAL E ---
History and Physical NAME: JONATHAN SHAW : 1950 AGE: 67Y ADMITTED: 02/23/2018 ROOM: ADMITTING DIAGNOSES: 1. Chronic ulcer of the left leg amputation site. 2. Diabetes mellitus type 2. 3. Peripheral arterial disease. 4. Hypertension. HISTORY OF PRESENTING COMPLAINT: The patient has been treated in the Wound Clinic for some time now. Persisting ulcer of the left amputation site has remained open despite advanced wound care. He is therefore referred for placement of a skin graft in the hopes of resolving the situation. PAST MEDICAL HISTORY: Diabetes mellitus, peripheral arterial disease, hypertension. SOCIAL AND FAMILY HISTORY: The patient is . He does smoke for several years. PAST SURGERIES: Left below-knee amputation. REVIEW OF SYSTEMS: Unremarkable otherwise. PHYSICAL EXAMINATION: GENERAL: A pleasant 67-year-old male. Alert and oriented in judgment and memory and insight. EYES: Mucous membranes pink and moist, sclera anicteric. Oropharynx normal, dentition intact. RESPIRATORY: No shortness of breath or wheezing. Breath sounds are normal and equal. CARDIAC: Heart sounds 1 and 2 normal. ABDOMEN: Soft and nontender. No masses. EXTREMITIES: Upper extremities showed normal range of movement and pulses equal. Lower extremities showed normal range of movement with the exception of the left below-knee amputation site. SKIN: Unremarkable. PLAN: The recommendations are for admission. Skin grafting, probably segments from the abdomen. Will be placed on the left below-knee amputation stump. The risks, benefits, expected outcome and alternatives were explained to the patient and he wishes to proceed. DICTATING PHYSICIAN: LOAN SOLANO M.D. [id number] PHY#: [id number] ID: [id number] JOB#: [id number] ACCT: [id number] cc:LOAN SOLANO M.D. > MTDD
== END 2018-02-23 14:45 | disposition home or self-care (01) ==
LOC: OROUT 07:49
PROVIDERS: ATTEND Surgery
DX: T87.44 Infection of amputation stump, left lower extremity (principal); L97.821 Non-pressure chronic ulcer of other part of left lower leg limited to breakdown of skin; E11.622 Type 2 diabetes mellitus with other skin ulcer; I10 Essential (primary) hypertension; I73.9 Peripheral vascular disease, unspecified; F17.210 Nicotine dependence, cigarettes, uncomplicated; Z89.512 Acquired absence of left leg below knee; B19.20 Unspecified viral hepatitis C without hepatic coma
CPT/HCPCS: 36415; 85027; 85610; 85730; 80048; 93005; 93010; 15220; J2250; J3490 ×3; J0690; J3010; J2704; 1482